=== PATIENT | female | born 1995 | race Caucasian/White ===

== ENCOUNTER 2016-06-27 22:12 | Emergency (ER) | payer SELFPAY ==
[~2016-06-27] VITALS: Ht 160 cm; Wt 59.0 kg
[2016-06-27] MEDS ORDERED: NKM (22:17)
[2016-06-27 22:40] VITALS: BP 155/98
[2016-06-27 23:00] VITALS: BP 155/68
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
[2016-06-28] MEDS ORDERED: UNOBMED (02:04)
== END 2016-06-27 23:00 | disposition home or self-care (01) ==
LOC: EDBD 22:12 → EMR 22:28
DX: Z04.41 Encounter for examination and observation following alleged adult rape (principal)
CPT/HCPCS: 99282

== ENCOUNTER 2016-06-28 02:18 | Emergency (ER) | payer SELFPAY ==
[~2016-06-28] VITALS: Ht 170.2 cm; Wt 63.5 kg
[~2016-06-28 02:18] MED LIST: NKM; UNOBMED
[2016-06-28 02:19] VITALS: BP 132/70
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
[2016-06-28 02:49] VITALS: BP 132/70
== END 2016-06-28 02:49 | disposition home or self-care (01) ==
LOC: EDBD 02:18 → EMR 02:28
DX: F99 Mental disorder, not otherwise specified (principal); F17.200 Nicotine dependence, unspecified, uncomplicated
CPT/HCPCS: 99282